=== PATIENT | female | born 1965 | race Asian ===

== ENCOUNTER → 2020-08-05 13:10 | Outpatient (CLI) | payer OTHER, SELFPAY ==
--- NOTE | 2020-08-05 | DI.MG.S_ITS ---
BILATERAL DIGITAL DIAGNOSTIC MAMMOGRAM 3D/2D WITH ADDITIONAL VIEWS: 08/05/2020 CLINICAL: Additional evaluation requested from prior study. Comparison is made to exams dated: 05/30/2018 mammogram, 12/03/2017 mammogram - [facility], 04/29/2020 mammogram - [facility], 11/06/2016 mammogram, and 10/02/2015 mammogram - [facility]. The tissue of both breasts is heterogeneously dense. This may lower the sensitivity of mammography. There is a stable benign coarse calcification in the right breast central to the nipple anterior depth. These were previously evaluated on 12/10/2017 and 05/30/2018 and are not significantly changed. There is a 0.5 cm oval equal density asymmetry with an indistinct margin in the left breast middle depth superior region seen on the mediolateral oblique view only. This is less prominent on additional views. No other significant masses or calcifications are seen in either breast. IMPRESSION: INCOMPLETE: NEEDS ADDITIONAL IMAGING EVALUATION 1) Asymmetry in the left breast middle depth superior region seen on the mediolateral oblique view only is indeterminate. -A targeted ultrasound is recommended and will immediately follow. 2) Stable benign calcifications in the subareolar right breast. This exam was interpreted at Station ID: [id number]. NOTE: For mammograms, a report in lay terms will be sent to the patient. Approximately 15% of breast malignancies will not be visualized mammographically. In the management of a palpable breast mass, a negative mammogram must not discourage biopsy of a clinically suspicious lesion. Electronically Signed By: Alli Horner M.D. [facility] [place]/:08/05/2020 14:48:25 ACR BI-RADS Category 0: Incomplete [id number]
--- NOTE | 2020-08-05 13:14 | DI.US.S_ITS ---
LIMITED ULTRASOUND OF LEFT BREAST AND AXILLA: 08/05/2020 CLINICAL: Patient returns today to evaluate a focal asymmetry in the left breast. Comparison is made to exams dated: 08/05/2020 mammogram - [facility], 04/29/2020 mammogram - [facility], 05/30/2018 mammogram, 12/10/2017 mammogram, 12/03/2017 mammogram, and 11/06/2016 mammogram - [facility]. Color flow and real-time ultrasound of the left breast 12-2 o'clock, and axilla regions were performed. Quiroz scale images of the real-time examination were reviewed. There is a 1.2 cm x 0.9 cm x 0.6 cm oval cyst in the left breast at 1 o'clock middle depth 2 cm from the nipple. This oval cyst is hypoechoic. This may correlate with mammography findings. Color flow imaging demonstrates that there is no vascularity present. No significant abnormalities were seen sonographically in the left axilla. IMPRESSION: PROBABLY BENIGN The 1.2 cm suspected cyst in the left breast is most consistent with a complicated cyst and is probably benign. A follow-up mammogram and an ultrasound in 6 months is recommended to demonstrate stability. Exam findings were conveyed to the patient. This exam was interpreted at Station ID: [id number]. Electronically Signed By: Alli Horner M.D. [facility] [place]/:08/05/2020 14:53:43 letter sent: Followup Recommended Ultrasound BI-RADS: 3 Probably benign
== END ==
PROVIDERS: PCP Family Medicine; Referring Provider Family Medicine; Visit Provider Family Medicine
DX: R92.8 Other abnormal and inconclusive findings on diagnostic imaging of breast (principal); R92.1 Mammographic calcification found on diagnostic imaging of breast; N64.89 Other specified disorders of breast
CPT/HCPCS: 76642; 77066; G0279

== ENCOUNTER → 2021-02-22 13:01 | Outpatient (CLI) | payer OTHER, SELFPAY ==
--- NOTE | 2021-02-22 | DI.MG.S_ITS ---
UNILATERAL LEFT DIGITAL DIAGNOSTIC MAMMOGRAM 3D/2D SHORT-TERM FOLLOW-UP: 02/22/2021 CLINICAL: Short term follow up. Comparison is made to exams dated: 08/05/2020 mammogram - [facility], 04/29/2020 mammogram - [facility], and 05/30/2018 mammogram - [facility]. The tissue of left breast is heterogeneously dense. This may lower the sensitivity of mammography. Redemonstration of previously described 0.5 cm oval equal density asymmetry in the left breast middle depth superior region seen on the mediolateral oblique view only. This appears less prominent. No other significant masses or calcifications are seen in the breast. IMPRESSION: INCOMPLETE: NEEDS ADDITIONAL IMAGING EVALUATION The 0.5 cm oval equal density asymmetry in the left breast likely correlated with a complicated cyst on prior ultrasound but remains indeterminate. An ultrasound is recommended for further evaluation and is scheduled to immediately follow this examination; however, the patient was not able to stay to have the sonogram and will return as soon as possible to complete this evaluation. This exam was interpreted at Station ID: [id number]. NOTE: For mammograms, a report in lay terms will be sent to the patient. Approximately 15% of breast malignancies will not be visualized mammographically. In the management of a palpable breast mass, a negative mammogram must not discourage biopsy of a clinically suspicious lesion. Electronically Signed By: Chandrakant esquively/:02/22/2021 14:09:20 Entry: - 02/23/2021 08:42:38 letter sent: Need Ultrasound ACR BI-RADS Category 0: Incomplete [id number]
== END ==
PROVIDERS: PCP Family Medicine; Referring Provider Family Medicine; Visit Provider Family Medicine
DX: R92.8 Other abnormal and inconclusive findings on diagnostic imaging of breast (principal); N64.89 Other specified disorders of breast
CPT/HCPCS: 77065; G0279

== ENCOUNTER → 2021-03-23 12:59 | Outpatient (CLI) | payer OTHER, SELFPAY ==
--- NOTE | 2021-03-23 | DI.US.S_ITS ---
ULTRASOUND OF LEFT BREAST: 03/23/2021 CLINICAL: Patient returns today to evaluate a focal asymmetry in the left breast. Comparison is made to exams dated: 02/22/2021 mammogram, 08/05/2020 ultrasound, 08/05/2020 mammogram - [facility], 04/29/2020 mammogram - [facility], 05/30/2018 mammogram, and 12/10/2017 mammogram - [facility]. Color flow and real-time ultrasound of the left breast were performed. Quiroz scale images of the real-time examination were reviewed. Redemonstration of the previously described possible 0.9 cm oval cyst in the left breast at 1 o'clock middle depth 2 cm from the nipple. It is hypoechoic and correlates with mammography findings. Color flow imaging demonstrates that there is no vascularity present. On today's exam, this possible cyst may represent a more focal area of fibroglandular tissue as it blends into adjacent tissues in the orthogonal planes and during real time imaging. IMPRESSION: PROBABLY BENIGN The possible 0.9 cm oval hypoechoic region in the left breast has a differential diagnosis of a possible complicated cyst versus focal fibroglandular tissue and is probably benign. A follow-up bilateral mammogram and a left ultrasound in 6 months is recommended to demonstrate stability versus resolution. Findings and recommendations were conveyed to the patient during today's evaluation. This exam was interpreted at Station ID: [id number]. Electronically Signed By: Chandrakant Almanzar M.D. [facility]/:03/23/2021 14:00:44 letter sent: Followup Recommended Ultrasound BI-RADS: 3 Probably benign
== END ==
PROVIDERS: PCP Family Medicine; Referring Provider Family Medicine; Visit Provider Family Medicine
DX: R92.8 Other abnormal and inconclusive findings on diagnostic imaging of breast (principal); N64.89 Other specified disorders of breast
CPT/HCPCS: 76642